=== PATIENT | male | born 1960 | race Caucasian/White ===

== ENCOUNTER → 2018-03-30 | Outpatient (RCR) | payer OTHER ==
[2015-10-30 15:50] VITALS: BMI 32.1
[2017-12-30 15:00] VITALS: BP 130/70
[2017-12-30 15:01] VITALS: BP 132/80
--- NOTE | 2017-12-30 15:43 | CARDIAC REHAB PLAN OF CARE ---
Physician: MD Ritika Patient is being seen: LinaresLudin almeidalett Medical Diagnosis: PTCA x 3 Date of Onset: 11/15/17 Date of Initial Evaluation: 12/30/17 Date patient was last seen: 12/30/17 INTERVENTIONS: SHORT TERM GOALS Due Date: 01/30/18 Short Term Goals: Patient Summary: Patient returns to cardiac rehab following a third PTCA placement on 11/15/17. Other risk factors include obesity, hypertension, and high cholesterol. The patient reports occasional shortness of breath and chest pain upon exertion. Exercise Assessment: Patient appears to be in adequate cardiovascular shape, with limited heart rate range capability (88-110bpm). He performed a total of 16 minutes of exercise today during initial assessments, but is capable of performing more. BP response was adequate (168/70) during exercise, as was SPO2 (89-93%) during exercise. Patient walked for a total of 1500ft in the 6- Minute Walk Test, resulting in an average of 2.8mph. Patient reported on average an RPE 4-5 and at one point a dyspnea of +2. Exercise Plan: Goals: Over the next month it will be the patient's goal to improve exercise tolerance and achieve on average 45 minutes of continuous aerobic exercise within his THR range and a RPE between 3-5. The primary goal will be to increase duration/time of exercise first. Once this is accomplished we will start to increase intensity. Exercise Prescription: Mode: Treadmill & Upright Bike Frequency: 3 days/week (Wednesday, Wednesday, Wednesday) Duration: The patient will start with at least 25 minutes during his first week of exercise and slowly progress towards achieving 45 minutes on average by the end of the next month. Intensity: THR range 90-105bpm Education: Exercise education will begin with informing the patient of proper physiological response to increasing exercise load. We will also focus our information towards the positive aspects of exercise so as to encourage activity during leisure time at home. Exercise Reassessment (Date: ): Exercise Discharge/Follow-Up (Date: ): Nutrition Assessment: Patient's diet is currently changing following recent PTCA placement. The patient has demonstrated interest in bettering his diet but admits to some challenges. Primary challenge includes cost of eating healthy, followed by meal preparation. His main diet consists of red meat and snacks while he works. He noted that he is trying to eat more vegetables and salad, but states that he coats them in unhealthy salad dressing. He has been improving his portion control. The patient also reports significant cutting back in sugar sweetened beverage intake. His understanding of healthy food options and importance of macronutrients is limited. Nutrition Plan: Over the next month the patient's goal will be to limit take out/fast food intake and focus on at home meal preparation and budget friendly healthy eating. We will help provide education as to best eat healthy on a budget and focus on whole foods (whole grains, vegetables, and lean meats). Goals: Over the next month it will be the patient's goal to eat out no more than 2x/week and to try incorporating whole grains and different vegetables into his regular diet. Intervention: In order to help achieve this goal we will provide information as to healthy eating that leads to prolonged behavior change. Education: The education intervention will focus on budget friendly healthy eating and at home food preparation. This will include but is not limited to recipes, nutritional information, and trips and tricks to prolonged dietary behavior change. Nutrition Reassessment (Date: ): Nutrition Discharge/Follow-Up (Date: ): Psychosocial Assessment: Patient seems to be a realist in thinking. He recognizes the benefit of cardiac rehabilitation and that is why he is joining the program. He has a strong family support behind his health intervention that provides him with motivation. The patient reported low levels of depression and anxiety in the HADS assessment. Currently, the patient has a lot of excess stress (selling his home, soon to be moving, lives 2 hours away, etc) but appears to be handling his stress levels with some degress of success. Psychosocial Plan: Goals: Through the course of the program, our goal will be to help maintain the patient's healthy level of anxiety and stress. Intervention: Primary goals will be to help educate the patient on stress relieving techniques and the benefits of exercise in stress management. We will also aim to keep his family involved in his care plan. Education: Education will focus towards ways to manage stress levels in a healthy manner as well as being able to identify signs/symptoms of when he is experiencing stress/anxiety. Psychosocial Reassessment (Date: ): Psychosocial Discharge/Follow-Up (Date: ): Patient Goals Met: Patient Goals Not Met Due To: Cardiac Rehabilitation Plan of Care Comment: Weight Management Assessment: Patient currently weighs 245lbs, making his BMI approximately 34kg/m2. Being overweight may be playing a role in his current health status, such as CAD, hypertension, high cholesterol, and sleep apnea. Weight Management Plan: Goals: It is the patient's goal to lose at least 30lbs. However, it was relayed to him that this goal is unlikely to be attained in the 12 week program without significant dietary changes. The discussed goal has been to lose 5% of his total body weight (approximately 12.5lbs) over the course of the next 36 visits. Intervention: Additional exercise will be the main focus of weight management during his time spent in the exercise sesssions. This will be supplemented by an increase in leisure time activity at home. The patient currently tries to reach 10,000 steps on most days. We will aim to increase this to 10,000 on all days, with 12,000 on at least 2 days/week. The patient also currently has an radha called [employer], which is encouraging him to lose 4% of his total mass ( similar to our designed goal). This radha allows him to have the social support of others to help him achieve his goal. Education: We will continue to provide education on all the factors that can help influence weight loss (e.g. diet and exercise), but also mention the importance of sleep (especially sleep apnea resolutions) and stress management for weight loss as well. We will also help develop a realistic goal with the patient that allows him to stay motivated and not become discouraged when weightloss is not as quick and easy as he may like. Weight Management Reassessment (Date: ): Weight Management Discharge/Follow-Up (Date: ): Physician Signature: Date: KACYD
[2017-12-31 12:58] VITALS: BP 140/70
[2017-12-31 12:59] VITALS: BP 140/78
[2018-01-03 12:37] VITALS: BP_SYST 138; BP_SYST 150; BP_DIAS 78; BP_DIAS 80
[2018-01-05 13:08] VITALS: BP 144/76
[2018-01-05 13:09] VITALS: BP 122/82
[2018-01-10 13:11] VITALS: BP 150/70
[2018-01-10 13:12] VITALS: BP 138/72
[2018-01-12 13:06] VITALS: BP_SYST 130; BP_SYST 142; BP_DIAS 70; BP_DIAS 80
[2018-01-14 13:13] VITALS: BP 138/70
[2018-01-14 13:14] VITALS: BP 118/70
[2018-01-17 13:11] VITALS: BP 126/78
[2018-01-17 13:12] VITALS: BP 116/70
[2018-01-19 13:21] VITALS: BP 124/64
[2018-01-19 13:22] VITALS: BP 124/82
[2018-01-21 13:23] VITALS: BP_SYST 120; BP_SYST 136; BP_DIAS 70
--- NOTE | 2018-01-26 12:34 | CARDIAC REHAB PLAN OF CARE ---
Physician: Tariq Yost Patient is being seen: Ev Linares Medical Diagnosis: PTCA x 3 Date of Onset: 11/15/17 Date of Initial Evaluation: 12/30/17 Date patient was last seen: 01/21/18 Number of treatments: 10 Number of cancellations/No Shows: 1 INTERVENTIONS: Due Date: 02/25/18 Patient Summary: Patient returns to cardiac rehab following a third PTCA placement on 11/15/17. Other risk factors include obesity, hypertension, and high cholesterol. The patient reports occasional shortness of breath and chest pain upon exertion. Exercise Assessment: Patient appears to be in adequate cardiovascular shape, with limited heart rate range capability (88-110bpm). He performed a total of 16 minutes of exercise today during initial assessments, but is capable of performing more. BP response was adequate (168/70) during exercise, as was SPO2 (89-93%) during exercise. Patient walked for a total of 1500ft in the 6-Minute Walk Test, resulting in an average of 2.8mph. Patient reported on average an RPE 4-5 and at one point a dyspnea of +2. Exercise Plan: Goals: Over the next month it will be the patient's goal to improve exercise tolerance and achieve on average 45 minutes of continuous aerobic exercise within his THR range and a RPE between 3-5. The primary goal will be to increase duration/time of exercise first. Once this is accomplished we will start to increase intensity. Exercise Prescription: Mode: Treadmill & Upright Bike Frequency: 3 days/week (Wednesday, Wednesday, Wednesday) Duration: The patient will start with at least 25 minutes during his first week of exercise and slowly progress towards achieving 45 minutes on average by the end of the next month. Intensity: THR range 90-105bpm Education: Exercise education will begin with informing the patient of proper physiological response to increasing exercise load. We will also focus our information towards the positive aspects of exercise so as to encourage activity during leisure time at home. Exercise Reassessment (Date: 01/26/18): Patient has been consistent on attending CR exercise sessions and has gradually increased exercise duration appropriately. He is currently exercise at at least 50 minutes of continuous exercise per sessions within the appropriate intensity (HR 85-105bpm). He has also started to gradually increase his intensity with METs between 4.0-5.0 on the bike and averaging at 4.0 on the treadmill. During one exercise session the patient did push himself to a HR outside his designated range. He reached 115bpm on the bike. During this time his blood pressure was abnormally elevated with a SBP above 240mmHg. We immediately ended his exercise until his BP decreased to a safe level. Following exercise he reported feeling nauseous the rest of the day. Since then he has maintained his proper exercise intensity and has had normal exercise blood pressure responses. For the next month we will continue to gradually increase intensity towards 5.0-6.0 METs on average pending his hemodynamic response is within normal limits. Exercise Discharge/Follow-Up (Date: ): Nutrition Assessment: Patient's diet is currently changing following recent PTCA placement. The patient has demonstrated interest in bettering his diet but admits to some challenges. Primary challenge includes cost of eating healthy, followed by meal preparation. His main diet consists of red meat and snacks while he works. He noted that he is trying to eat more vegetables and salad, but states that he coats them in unhealthy salad dressing. He has been improving his portion control. The patient also reports significant cutting back in sugar sweetened beverage intake. His understanding of healthy food options and importance of macronutrients is limited. Nutrition Plan: Over the next month the patient's goal will be to limit take out/fast food intake and focus on at home meal preparation and budget friendly healthy eating. We will help provide education as to best eat healthy on a budget and focus on whole foods (whole grains, vegetables, and lean meats). Goals: Over the next month it will be the patient's goal to eat out no more than 2x/week and to try incorporating whole grains and different vegetables into his regular diet. Intervention: In order to help achieve this goal we will provide information as to healthy eating that leads to prolonged behavior change. Education: The education intervention will focus on budget friendly healthy eating and at home food preparation. This will include but is not limited to recipes, nutritional information, and trips and tricks to prolonged dietary behavior change. Nutrition Reassessment (Date: 01/26/18): Patient reports making small improvements to his diet. Primary changes have been towards portion control of unhealthy foods. He has tried to eat more salads but admits to adding too much dressing to them. We will continue to ask about his dietary changes on a regualar basis so as to have the patient take some personal responsibility. We will also provide him with information towards easy and inexpensive ways to eat healthier. Nutrition Discharge/Follow-Up (Date: ): Psychosocial Assessment: Patient seems to be a realist in thinking. He recognizes the benefit of cardiac rehabilitation and that is why he is joining the program. He has a strong family support behind his health intervention that provides him with motivation. The patient reported low levels of depression and anxiety in the HADS assessment. Currently, the patient has a lot of excess stress (selling his home, soon to be moving, lives 2 hours away, etc) but appears to be handling his stress levels with some degree of success. Psychosocial Plan: Goals: Through the course of the program, our goal will be to help maintain the patient's healthy level of anxiety and stress. Intervention: Primary goals will be to help educate the patient on stress relieving techniques and the benefits of exercise in stress management. We will also aim to keep his family involved in his care plan. Education: Education will focus towards ways to manage stress levels in a healthy manner as well as being able to identify signs/symptoms of when he is experiencing stress/anxiety. Psychosocial Reassessment (Date: 01/26/18): Patient reports improved mood and energy levels since beginning the program. While somewhat hesitant to attend the program at first, he now enjoys the exercise sessions and the people with whom he associates. From a health care perspective this program has been an important uplifting element to the patients social health. He smiles and is happy regularly when he is at the rehab facility. Our goal over the next month will be to continue encouraging these behaviors and making strong professional connections with the patient to encourage social and mental health and awareness. Psychosocial Discharge/Follow-Up (Date: ): Weight Management Assessment: Patient currently weighs 245lbs, making his BMI approximately 34kg/m2. Being overweight may be playing a role in his current health status, such as CAD, hypertension, high cholesterol, and sleep apnea. Weight Management Plan: Goals: It is the patient's goal to lose at least 30lbs. However, it was relayed to him that this goal is unlikely to be attained in the 12 week program without significant dietary changes. The discussed goal has been to lose 5% of his total body weight (approximately 12.5lbs) over the course of the next 36 visits. Intervention: Additional exercise will be the main focus of weight management during his time spent in the exercise sessions. This will be supplemented by an increase in leisure time activity at home. The patient currently tries to reach 10,000 steps on most days. We will aim to increase this to 10,000 on all days, with 12,000 on at least 2 days/week. The patient also currently has an radha called [employer], which is encouraging him to lose 4% of his total mass (similar to our designed goal). This radha allows him to have the social support of others to help him achieve his goal. Education: We will continue to provide education on all the factors that can help influence weight loss (e.g. diet and exercise), but also mention the importance of sleep (especially sleep apnea resolutions) and stress management for weight loss as well. We will also help develop a realistic goal with the patient that allows him to stay motivated and not become discouraged when weight loss is not as quick and easy as he may like. Weight Management Reassessment (Date: 01/26/18): We are unaware of any progress made on the patient behalf towards his weight management goals. We will follow up upon our next exercise session with information pertaining to [employer] success, leisure time activity via # of steps taken per day, as well as overall weight loss. Weight Management Discharge/Follow-Up (Date: ): Physician Signature: Date: MTDD
[2018-01-28 13:24] VITALS: BP 134/64
[2018-01-28 13:29] VITALS: BP 100/60
[2018-02-11 17:35] VITALS: BP 148/80
[2018-02-11 17:36] VITALS: BP 117/68
[2018-02-14 17:06] VITALS: BP 136/68
[2018-02-14 17:07] VITALS: BP 104/60
--- NOTE | 2018-02-24 12:49 | CARDIAC REHAB PLAN OF CARE ---
Physician: Kemar Pollock DO Patient is being seen: Ev Linares Medical Diagnosis: PTCA x 3 Date of Onset: 11/07/17 Date of Initial Evaluation: 12/30/17 Date patient was last seen: 02/14/18 Number of treatments: 13 Number of cancellations/No Shows: 10 Due Date: 03/27/18 Patient Summary: Patient returns to cardiac rehab following a third PTCA placement on 11/15/17. Other risk factors include obesity, hypertension, and high cholesterol. The patient reports occasional shortness of breath and chest pain upon exertion. capable of performing more. BP response was adequate (168/70) during exercise, as was SPO2 (89-93%) during exercise. Patient walked for a total of 1500ft in the 6-Minute Walk Test, resulting in an average of 2.8mph. Patient reported on average an RPE 4-5 and at one point a dyspnea of +2. Exercise Plan: Goals: Over the next month it will be the patient's goal to improve exercise tolerance and achieve on average 45 minutes of continuous aerobic exercise within his THR range and a RPE between 3-5. The primary goal will be to increase duration/time of exercise first. Once this is accomplished we will start to increase intensity. Exercise Prescription: Mode: Treadmill & Upright Bike Frequency: 3 days/week (Wednesday, Wednesday, Wednesday) Duration: The patient will start with at least 25 minutes during his first week of exercise and slowly progress towards achieving 45 minutes on average by the end of the next month. Intensity: THR range 90-105bpm Education: Exercise education will begin with informing the patient of proper physiological response to increasing exercise load. We will also focus our information towards the positive aspects of exercise so as to encourage activity during leisure time at home. Exercise Reassessment (Date: 01/26/18): Patient has been consistent on attending CR exercise sessions and has gradually increased exercise duration appropriately. He is currently exercise at at least 50 minutes of continuous exercise per sessions within the appropriate intensity (HR 85-105bpm). He has also started to gradually increase his intensity with METs between 4.0-5.0 on the bike and averaging at 4.0 on the treadmill. During one exercise session the patient did push himself to a HR outside his designated range. He reached 115bpm on the bike. During this time his blood pressure was abnormally elevated with a SBP above 240mmHg. We immediately ended his exercise until his BP decreased to a safe level. Following exercise he reported feeling nauseous the rest of the day. Since then he has maintained his proper exercise intensity and has had normal exercise blood pressure responses. For the next month we will continue to gradually increase intensity towards 5.0-6.0 METs on average pending his hemodynamic response is within normal limits. Exercise Reassessment (Date: 02/24/18): The patient has only attended 3 times since the last treatment plan. He has recently started a new job which requires him to stick to a more regular schedule and has inhibited him from attending his cardiac rehab sessions. Talking to the patient earlier this week he states he will try to attend rehab at least 1 day a week, but aim for two if he can get the time off from work. While at work he does claim he is on his feet a lot, taking about 15,000-20,000 steps/day. This is a huge increase in leisure time activity from before. When he does come to rehab we still start with slow progression again as he has been absent most of the last month. His THR will remain 90-110bpm with METs between 4.5-5.5 for a total of 50+ minutes of continuous exercise. Exercise Discharge/Follow-Up (Date: ): Nutrition Assessment: Patient's diet is currently changing following recent PTCA placement. The patient has demonstrated interest in bettering his diet but admits to some challenges. Primary challenge includes cost of eating healthy, followed by meal preparation. His main diet consists of red meat and snacks while he works. He noted that he is trying to eat more vegetables and salad, but states that he coats them in unhealthy salad dressing. He has been improving his portion control. The patient also reports significant cutting back in sugar sweetened beverage intake. His understanding of healthy food options and importance of macronutrients is limited. Nutrition Plan: Over the next month the patient's goal will be to limit take out/fast food intake and focus on at home meal preparation and budget friendly healthy eating. We will help provide education as to best eat healthy on a budget and focus on whole foods (whole grains, vegetables, and lean meats). Goals: Over the next month it will be the patient's goal to eat out no more than 2x/week and to try incorporating whole grains and different vegetables into his regular diet. Intervention: In order to help achieve this goal we will provide information as to healthy eating that leads to prolonged behavior change. Education: The education intervention will focus on budget friendly healthy eating and at home food preparation. This will include but is not limited to recipes, nutritional information, and trips and tricks to prolonged dietary behavior change. Nutrition Reassessment (Date: 01/26/18): Patient reports making small improvements to his diet. Primary changes have been towards portion control of unhealthy foods. He has tried to eat more salads but admits to adding too much dressing to them. We will continue to ask about his dietary changes on a regular basis so as to have the patient take some personal responsibility. We will also provide him with information towards easy and inexpensive ways to eat healthier. Nutrition Reassessment (Date: 02/24/18): Patient has reported using portion control to help with his goal of weight loss. He has appeared to have lost weight over the past few months and we will be sure to weigh him the next time he comes in. We will hopefully be able to provide him with some take home material related to nutrition since our one-on-one interaction will decrease. Nutrition Discharge/Follow-Up (Date: ): Psychosocial Assessment: Patient seems to be a realist in thinking. He recognizes the benefit of cardiac rehabilitation and that is why he is joining the program. He has a strong family support behind his health intervention that provides him with motivation. The patient reported low levels of depression and anxiety in the HADS assessment. Currently, the patient has a lot of excess stress (selling his home, soon to be moving, lives 2 hours away, etc) but appears to be handling his stress levels with some degree of success. Psychosocial Plan: Goals: Through the course of the program, our goal will be to help maintain the patient's healthy level of anxiety and stress. Intervention: Primary goals will be to help educate the patient on stress relieving techniques and the benefits of exercise in stress management. We will also aim to keep his family involved in his care plan. Education: Education will focus towards ways to manage stress levels in a healthy manner as well as being able to identify signs/symptoms of when he is experiencing stress/anxiety. Psychosocial Reassessment (Date: 01/26/18): Patient reports improved mood and energy levels since beginning the program. While somewhat hesitant to attend the program at first, he now enjoys the exercise sessions and the people with whom he associates. From a health care perspective this program has been an important uplifting element to the patients social health. He smiles and is happy regularly when he is at the rehab facility. Our goal over the next month will be to continue encouraging these behaviors and making strong professional connections with the patient to encourage social and mental health and awareness. Psychosocial Reassessment (Date: 02/24/18): Patient reports that he truly misses rehab since he has been unable to attend regularly. He missed the social aspect as well as the physical. It is evident that he truly does value the experience and education provided through the program. Our goal over the next month will be to maintain that appreciation level and social support even though he is not regularly attending. We can hopefully do this through interactions both here and via electronic communication. Psychosocial Discharge/Follow-Up (Date: ): Physician Signature: Date: MTDD
[2018-03-07 13:28] VITALS: BP_SYST 122; BP_SYST 126; BP_DIAS 62; BP_DIAS 64
[2018-03-14 16:59] VITALS: BP 122/80
[2018-03-14 17:00] VITALS: BP 130/62
[2018-03-28 16:25] VITALS: BP 142/68
[2018-03-28 16:26] VITALS: BP 132/68
[~2018-03-30] MED LIST: AMLO-111 PO; ASP325 PO; ATR80PT PO; HYDR-317 PO; IBUP-56 PO; MET50 PO; METO25TA93 PO; advil
[2018-03-30 13:14] VITALS: BP 138/78
[2018-03-30 13:17] VITALS: BP 130/78
--- NOTE | 2018-03-30 14:16 | CARDIAC REHAB PLAN OF CARE ---
Physician: Tariq Yost MD Patient is being seen: Ev Linares Medical Diagnosis: PTCA x 3 Date of Onset: 11/07/17 Date of Initial Evaluation: 12/30/17 Date patient was last seen: 03/30/18 Number of treatments: 17 Number of cancellations/No Shows: 21 INTERVENTIONS: Due Date: 04/29/18 Patient Summary: Patient returns to cardiac rehab following a third PTCA placement on 11/15/17. Other risk factors include obesity, hypertension, and high cholesterol. The patient reports occasional shortness of breath and chest pain upon exertion. capable of performing more. BP response was adequate (168/70) during exercise, as was SPO2 (89-93%) during exercise. Patient walked for a total of 1500ft in the 6-Minute Walk Test, resulting in an average of 2.8mph. Patient reported on average an RPE 4-5 and at one point a dyspnea of +2. Exercise Plan: Goals: Over the next month it will be the patient's goal to improve exercise tolerance and achieve on average 45 minutes of continuous aerobic exercise within his THR range and a RPE between 3-5. The primary goal will be to increase duration/time of exercise first. Once this is accomplished we will start to increase intensity. Exercise Prescription: Mode: Treadmill & Upright Bike Frequency: 3 days/week (Wednesday, Wednesday, Wednesday) Duration: The patient will start with at least 25 minutes during his first week of exercise and slowly progress towards achieving 45 minutes on average by the end of the next month. Intensity: THR range 90-105bpm Education: Exercise education will begin with informing the patient of proper physiological response to increasing exercise load. We will also focus our information towards the positive aspects of exercise so as to encourage activity during leisure time at home. Exercise Reassessment (Date: 01/26/18): Patient has been consistent on attending CR exercise sessions and has gradually increased exercise duration appropriately. He is currently exercise at at least 50 minutes of continuous exercise per sessions within the appropriate intensity (HR 85-105bpm). He has also started to gradually increase his intensity with METs between 4.0-5.0 on the bike and averaging at 4.0 on the treadmill. During one exercise session the patient did push himself to a HR outside his designated range. He reached 115bpm on the bike. During this time his blood pressure was abnormally elevated with a SBP above 240mmHg. We immediately ended his exercise until his BP decreased to a safe level. Following exercise he reported feeling nauseous the rest of the day. Since then he has maintained his proper exercise intensity and has had normal exercise blood pressure responses. For the next month we will continue to gradually increase intensity towards 5.0-6.0 METs on average pending his hemodynamic response is within normal limits. Exercise Reassessment (Date: 02/24/18): The patient has only attended 3 times since the last treatment plan. He has recently started a new job which requires him to stick to a more regular schedule and has inhibited him from attending his cardiac rehab sessions. Talking to the patient earlier this week he states he will try to attend rehab at least 1 day a week, but aim for two if he can get the time off from work. While at work he does claim he is on his feet a lot, taking about 15,000-20,000 steps/day. This is a huge increase in leisure time activity from before. When he does come to rehab we still start with slow progression again as he has been absent most of the last month. His THR will remain 90-110bpm with METs between 4.5-5.5 for a total of 50+ minutes of continuous exercise. Exercise Reassessment (Date: 03/30/18): No changes since last ITP. The patient has only attended 3 sessions since the last care plan and remains doing similar exercise when he does attend. Our primary focus will be to encourage regular attendance. Pending regular attendance we will further develop his ITP as things may have changed. Exercise Discharge/Follow-Up (Date: ): Nutrition Assessment: Patient's diet is currently changing following recent PTCA placement. The patient has demonstrated interest in bettering his diet but admits to some challenges. Primary challenge includes cost of eating healthy, followed by meal preparation. His main diet consists of red meat and snacks while he works. He noted that he is trying to eat more vegetables and salad, but states that he coats them in unhealthy salad dressing. He has been improving his portion control. The patient also reports significant cutting back in sugar sweetened beverage intake. His understanding of healthy food options and importance of macronutriants is limited. Nutrition Plan: Over the next month the patient's goal will be to limit take out/fast food intake and focus on at home meal preparation and budget friendly healthy eating. We will help provide education as to best eat healthy on a budget and focus on whole foods (whole grains, vegetables, and lean meats). Goals: Over the next month it will be the patient's goal to eat out no more than 2x/week and to try incorporating whole grains and different vegetables into his regular diet. Intervention: In order to help achieve this goal we will provide information as to healthy eating that leads to prolonged behavior change. Education: The education intervention will focus on budget friendly healthy eating and at home food preparation. This will include but is not limited to recipes, nutritional information, and trips and tricks to prolonged dietary behavior change. Nutrition Reassessment (Date: 01/26/18): Patient reports making small improvements to his diet. Primary changes have been towards portion control of unhealthy foods. He has tried to eat more salads but admits to adding too much dressing to them. We will continue to ask about his dietary changes on a regular basis so as to have the patient take some personal responsibility. We will also provide him with information towards easy and inexpensive ways to eat healthier. Nutrition Reassessment (Date: 02/24/18): Patient has reported using portion control to help with his goal of weight loss. He has appeared to have lost weight over the past few months and we will be sure to weigh him the next time he comes in. We will hopefully be able to provide him with some take home material related to nutrition since our one-on-one interaction will decrease. Nutrition Reassessment (Date: 03/30/18): No changes to report. Patient has only attended 3 sessions since last ITP. Pending regular attendance to exercise session we will update his ITP with new information. Nutrition Discharge/Follow-Up (Date: ): Psychosocial Assessment: Patient seems to be a realist in thinking. He recognizes the benefit of cardiac rehabilitation and that is why he is joining the program. He has a strong family support behind his health intervention that provides him with motivation. The patient reported low levels of depression and anxiety in the HADS assessment. Currently, the patient has a lot of excess stress (selling his home, soon to be moving, lives 2 hours away, etc) but appears to be handling his stress levels with some degree of success. Psychosocial Plan: Goals: Through the course of the program, our goal will be to help maintain the patient's healthy level of anxiety and stress. Intervention: Primary goals will be to help educate the patient on stress relieving techniques and the benefits of exercise in stress management. We will also aim to keep his family involved in his care plan. Education: Education will focus towards ways to manage stress levels in a healthy manner as well as being able to identify signs/symptoms of when he is experiencing stress/anxiety. Psychosocial Reassessment (Date: 01/26/18): Patient reports improved mood and energy levels since beginning the program. While somewhat hesitant to attend the program at first, he now enjoys the exercise sessions and the people with whom he associates. From a health care perspective this program has been an important uplifting element to the patients social health. He smiles and is happy regularly when he is at the rehab facility. Our goal over the next month will be to continue encouraging these behaviors and making strong professional connections with the patient to encourage social and mental health and awareness. Psychosocial Reassessment (Date: 02/24/18): Patient reports that he truly misses rehab since he has been unable to attend regularly. He missed the social aspect as well as the physical. It is evident that he truly does value the experience and education provided through the program. Our goal over the next month will be to maintain that appreciation level and social support even though he is not regularly attending. We can hopefully do this through interactions both here and via electronic communication. Psychosocial Reassessment (Date: 03/30/18): No changes to report. Patient has only attended 3 sessions since last ITP. Pending regular attendance to exercise session we will update his ITP with new information. Psychosocial Discharge/Follow-Up (Date: ): Physician Signature: Date: MTDD
== END ==
LOC: CARD 12-30 11:00
PROVIDERS: ATTEND Internal Medicine
DX: Z95.5 Presence of coronary angioplasty implant and graft (principal); I25.10 Atherosclerotic heart disease of native coronary artery without angina pectoris; I10 Essential (primary) hypertension; Z96.641 Presence of right artificial hip joint; E66.9 Obesity, unspecified
CPT/HCPCS: 93798

== ENCOUNTER 2018-05-20 08:00 | Outpatient (RCR) | payer OTHER ==
[2015-10-30 15:50] VITALS: BMI 32.1
[2018-04-06 13:25] VITALS: BP 118/70
[2018-04-06 13:26] VITALS: BP 102/60
[2018-04-11 13:11] VITALS: BP_SYST 124; BP_SYST 134; BP_DIAS 76; BP_DIAS 82
[2018-04-22 17:34] VITALS: BP 136/70
[2018-04-22 17:36] VITALS: BP 120/68
[2018-04-27 17:41] VITALS: BP 138/80
[2018-04-27 17:42] VITALS: BP 104/62
--- NOTE | 2018-05-03 11:43 | CARDIAC REHAB PLAN OF CARE ---
Physician: Tariq Yost MD Patient is being seen: Ev Linares Medical Diagnosis: PTCA x 3 Date of Onset: 11/07/17 Date of Initial Evaluation: 12/30/17 Date patient was last seen: 04/27/18 Number of treatments: 21 Number of cancellations/No Shows: 29 INTERVENTIONS: Due Date: 06/03/17 Patient Summary: Patient returns to cardiac rehab following a third PTCA placement on 11/15/17. Other risk factors include obesity, hypertension, and high cholesterol. The patient reports occasional shortness of breath and chest pain upon exertion. capable of performing more. BP response was adequate (168/70) during exercise, as was SPO2 (89-93%) during exercise. Patient walked for a total of 1500ft in the 6-Minute Walk Test, resulting in an average of 2.8mph. Patient reported on average an RPE 4-5 and at one point a dyspnea of +2. Exercise Plan: Goals: Over the next month it will be the patient's goal to improve exercise tolerance and achieve on average 45 minutes of continuous aerobic exercise within his THR range and a RPE between 3-5. The primary goal will be to increase duration/time of exercise first. Once this is accomplished we will start to increase intensity. Exercise Prescription: Mode: Treadmill & Upright Bike Frequency: 3 days/week (Wednesday, Wednesday, Wednesday) Duration: The patient will start with at least 25 minutes during his first week of exercise and slowly progress towards achieving 45 minutes on average by the end of the next month. Intensity: THR range 90-105bpm Education: Exercise education will begin with informing the patient of proper physiological response to increasing exercise load. We will also focus our information towards the positive aspects of exercise so as to encourage activity during leisure time at home. Exercise Reassessment (Date: 01/26/18): Patient has been consistent on attending CR exercise sessions and has gradually increased exercise duration appropriately. He is currently exercise at at least 50 minutes of continuous exercise per sessions within the appropriate intensity (HR 85-105bpm). He has also started to gradually increase his intensity with METs between 4.0-5.0 on the bike and averaging at 4.0 on the treadmill. During one exercise session the patient did push himself to a HR outside his designated range. He reached 115bpm on the bike. During this time his blood pressure was abnormally elevated with a SBP above 240mmHg. We immediately ended his exercise until his BP decreased to a safe level. Following exercise he reported feeling nauseous the rest of the day. Since then he has maintained his proper exercise intensity and has had normal exercise blood pressure responses. For the next month we will continue to gradually increase intensity towards 5.0-6.0 METs on average pending his hemodynamic response is within normal limits. Exercise Reassessment (Date: 02/24/18): The patient has only attended 3 times since the last treatment plan. He has recently started a new job which requires him to stick to a more regular schedule and has inhibited him from attending his cardiac rehab sessions. Talking to the patient earlier this week he states he will try to attend rehab at least 1 day a week, but aim for two if he can get the time off from work. While at work he does claim he is on his feet a lot, taking about 15,000- 20,000 steps/day. This is a huge increase in leisure time activity from before. When he does come to rehab we still start with slow progression again as he has been absent most of the last month. His THR will remain 90-110bpm with METs between 4.5-5.5 for a total of 50+ minutes of continuous exercise. Exercise Reassessment (Date: 03/30/18): No changes since last ITP. The patient has only attended 3 sessions since the last care plan and remains doing similar exercise when he does attend. Our primary focus will be to encourage regular attendance. Pending regular attendance we will further develop his ITP as things may have changed. Exercise Reassessment (Date: 05/03/18): No changes since last ITP. Patient has only attended 4 visits since last reassessment. Exercise Discharge/Follow-Up (Date: ): Nutrition Assessment: Patient's diet is currently changing following recent PTCA placement. The patient has demonstrated interest in bettering his diet but admits to some challenges. Primary challenge includes cost of eating healthy, followed by meal preparation. His main diet consists of red meat and snacks while he works. He noted that he is trying to eat more vegetables and salad, but states that he coats them in unhealthy salad dressing. He has been improving his portion control. The patient also reports significant cutting back in sugar sweetened beverage intake. His understanding of healthy food options and importance of macronutriants is limited. Nutrition Plan: Over the next month the patient's goal will be to limit take out/fast food intake and focus on at home meal preparation and budget friendly healthy eating. We will help provide education as to best eat healthy on a budget and focus on whole foods (whole grains, vegetables, and lean meats). Goals: Over the next month it will be the patient's goal to eat out no more than 2x/week and to try incorporating whole grains and different vegetables into his regular diet. Intervention: In order to help achieve this goal we will provide information as to healthy eating that leads to prolonged behavior change. Education: The education intervention will focus on budget friendly healthy eating and at home food preparation. This will include but is not limited to recipes, nutritional information, and trips and tricks to prolonged dietary behavior change. Nutrition Reassessment (Date: 01/26/18): Patient reports making small improvements to his diet. Primary changes have been towards portion control of unhealthy foods. He has tried to eat more salads but admits to adding too much dressing to them. We will continue to ask about his dietary changes on a regular basis so as to have the patient take some personal responsibility. We will also provide him with information towards easy and inexpensive ways to eat healthier. Nutrition Reassessment (Date: 02/24/18): Patient has reported using portion control to help with his goal of weight loss. He has appeared to have lost weight over the past few months and we will be sure to weigh him the next time he comes in. We will hopefully be able to provide him with some take home material related to nutrition since our one-on-one interaction will decrease. Nutrition Reassessment (Date: 03/30/18): No changes to report. Patient has only attended 3 sessions since last ITP. Pending regular attendance to exercise session we will update his ITP with new information. Nutrition Reassessment (Date: 05/03/18): No changes since last ITP. Patient has only attended 4 visits since last reassessment. He has received education on healthy holiday eating and is set to determine goals for the beginning of the year in terms of nutrition planning/diet. Nutrition Discharge/Follow-Up (Date: ): Psychosocial Assessment: Patient seems to be a realist in thinking. He recognizes the benefit of cardiac rehabilitation and that is why he is joining the program. He has a strong family support behind his health intervention that provides him with motivation. The patient reported low levels of depression and anxiety in the HADS assessment. Currently, the patient has a lot of excess stress (selling his home, soon to be moving, lives 2 hours away, etc) but appears to be handling his stress levels with some degree of success. Psychosocial Plan: Goals: Through the course of the program, our goal will be to help maintain the patient's healthy level of anxiety and stress. Intervention: Primary goals will be to help educate the patient on stress relieving techniques and the benefits of exercise in stress management. We will also aim to keep his family involved in his care plan. Education: Education will focus towards ways to manage stress levels in a healthy manner as well as being able to identify signs/symptoms of when he is experiencing stress/anxiety. Psychosocial Reassessment (Date: 01/26/18): Patient reports improved mood and energy levels since beginning the program. While somewhat hesitant to attend the program at first, he now enjoys the exercise sessions and the people with whom he associates. From a health care perspective this program has been an important uplifting element to the patients social health. He smiles and is happy regularly when he is at the rehab facility. Our goal over the next month will be to continue encouraging these behaviors and making strong professional connections with the patient to encourage social and mental health and awareness. Psychosocial Reassessment (Date: 02/24/18): Patient reports that he truly misses rehab since he has been unable to attend regularly. He missed the social aspect as well as the physical. It is evident that he truly does value the experience and education provided through the program. Our goal over the next month will be to maintain that appreciation level and social support even though he is not regularly attending. We can hopefully do this through interactions both here and via electronic communication. Psychosocial Reassessment (Date: 03/30/18): No changes to report. Patient has only attended 3 sessions since last ITP. Pending regular attendance to exercise session we will update his ITP with new information. Psychosocial Reassessment (Date: 05/03/18): No changes since last ITP. Patient has only attended 4 visits since last reassessment. Psychosocial Discharge/Follow-Up (Date: ): MOIRA
[2018-05-04 12:57] VITALS: BP_SYST 150; BP_SYST 152; BP_DIAS 74; BP_DIAS 76
[~2018-05-20 08:00] MED LIST changes: -AMLO-111 PO; +AMLO-125 PO
[2018-05-20 12:53] VITALS: BP 120/78
[2018-05-20 12:56] VITALS: BP 110/64
== END 2018-05-20 18:00 | disposition home or self-care (01) ==
LOC: CARD 08:00
PROVIDERS: ATTEND Internal Medicine
DX: Z95.5 Presence of coronary angioplasty implant and graft (principal)
CPT/HCPCS: 93798

== ENCOUNTER → 2018-06-13 | Outpatient (CLI) | payer OTHER ==
[2015-10-30 15:50] VITALS: BMI 32.1
--- NOTE | 2018-06-13 07:15 | EKG ---
FACILITY: [facility] - [place]IENT NAME: SARTHAK BERRY : [id number] MR: [id number] V: [id number] EXAM DATE: ORDERING PHYSICIAN: SHIRA PRIDE TECHNOLOGIST: MIKAYLA Varner Reason : PRE-OP SHOULDER Blood Pressure : / mmHG Vent. Rate : 060 BPM Atrial Rate : 060 BPM P-R Int : 186 ms QRS Dur : 098 ms QT Int : 416 ms P-R-T Axes : 051 048 -03 degrees QTc Int : 416 ms Normal sinus rhythm Normal ECG When compared with ECG of 05-OCT-2015 09:05, No significant change was found Confirmed by SHIRA MEZA ([id number]) on 06/13/2018 9:38:44 AM Referred By: SHANNEN Confirmed By:SHIRA MEZA
[2018-06-13 16:35] LABS: PLATELET COUNT, AUTOMATED 243 K/uL (150-450)
== END ==
LOC: RESP 07:04
PROVIDERS: ATTEND Anesthesiology
DX: Z01.810 Encounter for preprocedural cardiovascular examination (principal); Z01.812 Encounter for preprocedural laboratory examination; M75.101 Unspecified rotator cuff tear or rupture of right shoulder, not specified as traumatic
CPT/HCPCS: 36415; 85025; 93005